=== PATIENT | male | born 1960 | race Caucasian/White ===

== ENCOUNTER 2019-06-03 20:30 | Outpatient (CLI) | payer MEDICARE | END 2019-06-03 20:31 | disposition home or self-care (01) | LOC: SLEEPLAB 20:30 | PROVIDERS: ATTEND Family Medicine | DX: G47.33 Obstructive sleep apnea (adult) (pediatric) (principal); R53.83 Other fatigue; K21.9 Gastro-esophageal reflux disease without esophagitis; R06.83 Snoring | CPT/HCPCS: 95810 ==

== ENCOUNTER 2019-09-29 08:03 | Outpatient (CLI) | payer MEDICARE ==
--- NOTE | 2019-09-29 09:34 | MRI ---
MR of the left shoulder without contrast INDICATION: Left shoulder pain. Fall 5 weeks ago with left shoulder pain TECHNIQUE: Sagittal T1, axial and coronal PD fat sat, sagittal and coronal T2 fat sat images were obt ained of the left shoulder. COMPARISON: None. FINDINGS: Motion artifact limits image detail. Rotator cuff: There is complete disruption of the supraspinatus and infraspinatus tendons. The subsca pularis and teres minor tendons remain intact. Glenohumeral joint: Articular cartilage is intact. Glenoid labrum: There is degenerative fraying of the superior glenoid labrum. Biceps tendon and biceps anchor: Postprocedural change of a prior biceps tenodesis. Acromion clavicular joint: normal Subacromial subdeltoid space: There is moderate fluid distention Axillary region: No lymphadenopathy. Surrounding shoulder musculature: There is moderate to severe teres minor and mild supraspinatus and infraspinatus muscular atrophy. IMPRESSION: 1. Massive rotator cuff tear with mild supraspinatus and infraspinatus muscular atrophy. 2. Moderate to severe teres minor muscular atrophy may be related to prior quadrant a space syndrome. The teres minor tendon remains intact. The subscapularis tendon remains intact. 3. Postprocedural change of a prior biceps tenodesis with degenerative fraying of the biceps anchor c omplex and superior glenoid labrum.
== END 2019-09-29 08:04 | disposition home or self-care (01) ==
LOC: SCSMRI 08:03
PROVIDERS: ATTEND Orthopaedic Surgery
DX: S46.012S Strain of muscle(s) and tendon(s) of the rotator cuff of left shoulder, sequela (principal); M75.102 Unspecified rotator cuff tear or rupture of left shoulder, not specified as traumatic; M62.512 Muscle wasting and atrophy, not elsewhere classified, left shoulder; M67.814 Other specified disorders of tendon, left shoulder; Z98.890 Other specified postprocedural states

== ENCOUNTER 2019-10-09 05:41 | Outpatient (CLI) | payer MEDICARE, OTHER ==
[2019-10-09 16:13] LABS: #Basophils 0.1 thou/uL (0.0-0.2); #Eosinphils 0.1 thou/uL (0.0-0.7); #Lymphocytes 2.1 thou/uL (1.20-3.40); #Monocytes 0.6 thou/uL (0.11-0.59); #Neutrophils 4.6 thou/uL (1.40-6.50); %Basophils 0.9 % (0.0-1.0); %Eosinophils 1.4 % (0.0-10.0); %Lymphocytes 28.1 % (21.0-51.0); %Monocytes 7.4 % (0.0-10.0); %Neutrophils 62.2 % (42.0-75.0); Hemoglobin 15.8 g/dL (14.0-18.0); Mean Corpuscular HGB CONC 35.1 g/dL (32.0-36.0); Mean Corpuscular Hemoglobin 32.3 pg (27.0-31.0); Mean Corpuscular Volume 91.9 fL (78.0-98.0); Mean Platelet Volume 8.7 fL (7.4-10.4); Platelet Count 260 thou/uL (130-400); RBC Distribution Width 11.5 % (11.5-14.5); Red Blood Cell (RBC) Count 4.91 mill/uL (4.70-6.10); White Blood Cell (WBC) Count 7.4 thou/uL (4.8-10.8)
[2019-10-09 16:27] LABS: Anion Gap 14 mmol/L (10-20); BUN (Urea Nitrogen) 10 mg/dL (8.4-25.7); Calc. Creatinine Clearance 0 mL/min (70-130); Calcium 9.7 mg/dL (7.8-10.44); Carbon Dioxide 25 mmol/L (22-29); Chloride 101 mmol/L (98-107); Estimated GFR-MDRD Greater than 90; Glucose 97 mg/dL (70-105); Potassium 3.9 mmol/L (3.5-5.1); Sodium 136 mmol/L (136-145)
[2019-10-10 15:41] LABS: SARS-CoV-2 MS2 Positive; SARS-CoV-2 N Gene Negative; SARS-CoV-2 S Gene Negative; SARS-CoV-2 orf1ab Negative
--- NOTE | 2019-10-13 10:11 | EKG ---
Test Reason : FOR 10/13 Blood Pressure : / mmHG Vent. Rate : 097 BPM Atrial Rate : 097 BPM P-R Int : 152 ms QRS Dur : 116 ms QT Int : 366 ms P-R-T Axes : 074 074 062 degrees QTc Int : 464 ms Normal sinus rhythm Normal ECG When compared with ECG of 15-SEP-2016 15:47, No significant change was found Confirmed by SHERRIE HOOPER (2) on 10/13/2019 10:11:05 AM Referred By: Confirmed By:SHERRIE HOOPER
== END 2019-10-09 05:42 | disposition home or self-care (01) ==
LOC: LABBT 05:41
PROVIDERS: ATTEND Orthopaedic Surgery
DX: Z01.818 Encounter for other preprocedural examination (principal); Z11.59 Encounter for screening for other viral diseases; S46.012A Strain of muscle(s) and tendon(s) of the rotator cuff of left shoulder, initial encounter
CPT/HCPCS: 80048; 85025; 93005; U0003; 87635; 93010

== ENCOUNTER 2019-10-14 07:06 | Day surgery (SDC) | payer MEDICARE ==
[2019-10-07 10:11] VITALS: BMI 25.9
[2019-10-14] MEDS ORDERED: Levofloxacin 500 mg/D5W 100 ml Premix Bag ONE (07:21)
[2019-10-14] MEDS ORDERED: Vancomycin 1.5 GRAM/300 ML BAG ONE (07:21)
[2019-10-14] MEDS ORDERED: Fentanyl 100 MCG/2 ML VIAL ONE ×2 (07:27→08:42)
[2019-10-14] MEDS ORDERED: Midazolam HCl 2 mg/2 ml Vial ONE (07:27)
[2019-10-14] MEDS ORDERED: Promethazine HCl 25 MG/ML VIAL IM PRN ×2 (08:43→09:51)
[2019-10-14] MEDS ORDERED: Zolpidem Tartrate 5 MG TAB PO PRN (08:43)
[2019-10-14] MEDS ORDERED: Ketorolac Tromethamine 30 MG/ML VIAL IVP PRN (08:43)
[2019-10-14] MEDS ORDERED: Ondansetron PF 4 MG/2 ML Vial IVP PRN (08:43)
[2019-10-14] MEDS ORDERED: HYDROcodone/Acetaminophen 10/325 mg Tablet PO PRN ×2 (08:43)
[2019-10-14] MEDS ORDERED: traMADol HCl 50 MG TAB PO PRN ×2 (08:43)
[2019-10-14] MEDS ORDERED: Ropivacaine 0.2% 550 ML 550 ML NERVE BLCK SCH (08:43)
[2019-10-14] MEDS ORDERED: Fentanyl 100 MCG/2 ML VIAL IV PRN (08:44)
[2019-10-14] MEDS ORDERED: Promethazine HCl 25 MG/ML VIAL SLOW IVP PRN (09:51)
[2019-10-14] MEDS ORDERED: Meperidine HCl/PF 25 MG/ML VIAL SLOW IVP PRN (09:51)
[2019-10-14] MEDS ORDERED: HYDROmorphone 2 MG/ML VIAL SLOW IVP PRN (09:51)
[2019-10-14] MEDS ORDERED: Glycopyrrolate 0.2 MG/ML 5 ML SYRINGE ONE (12:34)
[2019-10-14] MEDS ORDERED: Dexamethasone 20 MG/5 ML VIAL ONE (12:34)
[2019-10-14] MEDS ORDERED: EPHEDRINE 25 MG/5 ML SYRINGE ONE (12:34)
[2019-10-14] MEDS ORDERED: PROPOFOL 200 MG/20 ML VIAL ONE (12:34)
[2019-10-14] MEDS ORDERED: PHENYLEPHRINE-NS 100 MCG/ML 10 ML SYRINGE ONE (12:34)
[2019-10-14] MEDS ORDERED: Rocuronium Bromide 10 MG/ML (10ML VIAL) ONE (12:34)
[2019-10-14] MEDS ORDERED: Ketorolac Tromethamine 30 MG/ML VIAL ONE (12:34)
[2019-10-14] MEDS ORDERED: Ondansetron PF 4 MG/2 ML Vial ONE (12:34)
[2019-10-14] MEDS ORDERED: Lidocaine 1% PF 5 ML VIAL ONE (12:34)
[2019-10-14] MEDS ORDERED: Ropivacaine 0.2% HCl/PF (40 MG/20 ML VIAL) ONE (12:34)
--- NOTE | 2019-10-14 12:50 | OP ---
DATE OF PROCEDURE: 10/14/2019 This is Ted Wyman PA-C dictating a report for Dominik Ellis MD. PREOPERATIVE DIAGNOSIS: Recurrent left shoulder massive retracted rotator cuff tear, supraspinatus and infraspinatus tendon. POSTOPERATIVE DIAGNOSIS: Recurrent left shoulder massive retracted rotator cuff tear, supraspinatus and infraspinatus tendon. PROCEDURE PERFORMED: Revision open primary repair of left shoulder rotator cuff retracted tear, supraspinatus and infraspinatus tendon. HVAC DESIGNER: Ted Wyman PA-C ANESTHESIA: General via endotracheal tube, augmented with interscalene indwelling block. COMPONENTS USED: Arthrex 5.5 double-armed suture anchor x2, metal anchor, corkscrew with a SwiveLock suture anchor, BioComposite self-punching second-row anchor x2. ESTIMATED BLOOD LOSS: 35 mL. FINDINGS: Retracted chronic with acute superimposed tear of supraspinatus and infraspinatus tendon with retraction. DRAINS: None. SPECIMENS: None. COMPLICATIONS: None. COUNTS: Correct. INDICATIONS FOR SURGERY: Zeke is a 59-year-old white male who has had left shoulder pain now for 3 to 4 months with recent amplification of discomfort and weakness. He has failed conservative management. An MRI demonstrated retracted rotator cuff tear and he has elected to proceed with a revision open rotator cuff repair. PROCEDURE IN DETAIL: After informed consent was obtained in the preoperative holding area, the patient was taken to the operative suite where general anesthesia was induced. An endotracheal tube was placed and secured. Once adequate anesthesia was obtained, the patient was positioned appropriately in a semi-recumbent beach chair position. The left upper extremity was prepped and draped in the usual sterile fashion. Prior to incision, a time-out was called. All members of the surgical team agreed upon site, surgeon, and the patient. Once this was done, we used a typical lateral approach to the acromion, extending 2 fingers below the joint line and up to the AC joint. The tissue was divided with Bovie electrocautery. Two retractors were placed, holding the anterior deltoid free, allowing us to visualize into the depth of the wound. We immediately encountered a serous effusion, consistent with joint fluid upon entering the subdeltoid space. Denuded head was observed. Prior anchors were seen. We did not remove them. The rotator cuff tear retraction was then identified. We placed some retention stitches to reapproximate and one Cottony Dacron was then used to perform margin convergence of the tear. After appropriate decortication, we placed two 5.5 metal suture anchors, double-armed, placed and passed stitches using tissue bridge technique, leaving the arms for double row placement. After this was reapproximated, we then did a crossing double-row technique with the BioComposite SwiveLocks. Happy with our placement, near anatomic reduction. The patient's cuff was attenuated, but there was some tissue there for revision cuff repair. Primary closure was accomplished with reapproximating the anterior deltoid on the acromion. Lateral deltoid was then sewn from front to back with the anterior deltoid. Subcutaneous layer was closed with 0 Vicryl and subcutaneous layer was closed with 2-0 interrupted inverted mattress and stainless steel jeet were used to reapproximate the skin. Sterile dressing was applied. The procedure was terminated without any complication. The patient was awakened in the operative suite, extubated, and taken to recovery room in stable condition. Job ID: [id number]
== END 2019-10-14 12:20 | disposition home or self-care (01) ==
LOC: SDC 07:06
PROVIDERS: ATTEND Orthopaedic Surgery
PROC: 0LQ20ZZ Repair Left Shoulder Tendon, Open Approach (ICD-10-PCS; principal; 2019-10-14)
PROC: 0RHK04Z Insertion of Internal Fixation Device into Left Shoulder Joint, Open Approach (ICD-10-PCS; 2019-10-14)
PROC: 3E0T3BZ Introduction of Anesthetic Agent into Peripheral Nerves and Plexi, Percutaneous Approach (ICD-10-PCS; 2019-10-14)
DX: S46.012A Strain of muscle(s) and tendon(s) of the rotator cuff of left shoulder, initial encounter (principal); G89.18 Other acute postprocedural pain; E78.5 Hyperlipidemia, unspecified; M19.90 Unspecified osteoarthritis, unspecified site; E55.9 Vitamin D deficiency, unspecified; F41.9 Anxiety disorder, unspecified; G47.33 Obstructive sleep apnea (adult) (pediatric); Z79.899 Other long term (current) drug therapy; Z88.0 Allergy status to penicillin; W19.XXXA Unspecified fall, initial encounter
CPT/HCPCS: 23410; 64416; 97139; A4306; C1713; J1100; J1885; J1956; J2001; J2250; J2405; J2704; J2795; J3010; J3370

== ENCOUNTER 2019-10-20 09:56 | Emergency (ER) | payer MEDICARE ==
[~2019-10-20 09:56] MED LIST: Iopamidol-370 76% 500 ML 1 ML ONE
[2019-10-20 10:29] LABS: #Lymphocytes 0.7 thou/uL (1.20-3.40); #Monocytes 0.3 thou/uL (0.11-0.59); #Neutrophils 9.1 thou/uL (1.40-6.50); %Basophils 0.3 % (0.0-1.0); %Eosinophils 0.3 % (0.0-10.0); %Lymphocytes 7.3 % (21.0-51.0); %Neutrophils 89.1 % (42.0-75.0); Hemoglobin 14.3 g/dL (14.0-18.0); Mean Corpuscular HGB CONC 31.3 g/dL (32.0-36.0); Mean Corpuscular Hemoglobin 30.2 pg (27.0-31.0); Mean Corpuscular Volume 96.5 fL (78.0-98.0); Mean Platelet Volume 7.7 fL (7.4-10.4); Platelet Count 315 thou/uL (130-400); RBC Distribution Width 11.6 % (11.5-14.5); Red Blood Cell (RBC) Count 4.73 mill/uL (4.70-6.10); White Blood Cell (WBC) Count 10.2 thou/uL (4.8-10.8)
[2019-10-20 10:31] LABS: Bilirubin Negative (Negative); Blood, Urine Negative (Negative); Clarity Turbid (Clear); Glucose, Urine (Dipstick) Normal (Negative); Ketone, Urine Negative (Negative); Leukocyte Negative Leu/uL (Negative); Nitrite Negative (Negative); Protein, Urine (Dipstick) 20 mg/dL (Neg-Trace); Specific Gravity, Urine 1.017 (1.002-1.036); Urobilinogen Normal mg/dL (Less than 2); pH, Urine 8.5 (5.0-9.0)
[2019-10-20 10:45] LABS: ALT (SGPT) 40 U/L (8-55); AST (SGOT) 24 U/L (5-34); Albumin 3.6 g/dL (3.5-5.0); Alkaline Phosphatase 67 U/L (40-110); Anion Gap 14 mmol/L (10-20); BUN (Urea Nitrogen) 8 mg/dL (8.4-25.7); Bilirubin, Total 0.3 mg/dL (0.2-1.2); Calc. Creatinine Clearance 0 mL/min (70-130); Calcium 9.1 mg/dL (7.8-10.44); Carbon Dioxide 19 mmol/L (22-29); Chloride 108 mmol/L (98-107); Estimated GFR-MDRD Greater than 90; Globulin 2.9 g/dL (2.4-3.5); Glucose 121 mg/dL (70-105); Lipase 26 U/L (8-78); Potassium 3.7 mmol/L (3.5-5.1); Protein, Total 6.5 g/dL (6.0-8.3); Sodium 137 mmol/L (136-145)
--- NOTE | 2019-10-20 12:21 | CT ---
ABDOMEN AND PELVIC CT SCAN WITH IV CONTRAST: Date: 10/20/2019 HISTORY: Nausea, vomiting, and abdominal pain. FINDINGS: Visualized lungs appear clear. Small hiatal hernia. Tiny low density focus in the central liver, poss ibly a cyst. Gallbladder appears unremarkable. Several tania hepatis and duodenal lymph nodes are not ed, measuring up to approximately 0.9 cm short axis. Pancreas appears unremarkable. Spleen and adrena l glands are unremarkable. No renal calculus or acute obstruction. No large or small bowel obstruc tion. No CT evidence for acute appendicitis. Urinary bladder appears unremarkable. There is an elonga tabitha, somewhat curvilinear up to 0.7 x 5.3 cm very dense area of opacification in the anterior left ex traperitoneum region running from near the pubic symphysis up to approximately the level of the hip j oint, possibly related to some prior very dense contrast media, which I would favor over that of an a abdi of dystrophic calcification. It is certainly not acute. IMPRESSION: 1. No significant acute process in the abdomen or pelvis. 2. Small hiatal hernia. 3. Some borderline size lymph nodes in the tania hepatis and hepatopancreatic region. 4. No renal calculus or acute obstruction. 5. No CT evidence for acute appendicitis. 6. No other significant acute process. POS: RRE
== END 2019-10-20 12:34 | disposition home or self-care (01) ==
LOC: ERS 09:56
DX: E86.0 Dehydration (principal); R11.2 Nausea with vomiting, unspecified; R19.7 Diarrhea, unspecified; F41.9 Anxiety disorder, unspecified; Z79.899 Other long term (current) drug therapy
CPT/HCPCS: 36415; 74177; 80053; 81003; 83690; 85025; 96360; Q9967